=== PATIENT | female | born 1985 | race Two or more races ===

== ENCOUNTER 2020-04-10 17:20 | Outpatient (CLI) | payer OTHER | END 2020-04-10 23:59 | disposition home or self-care (01) | LOC: LAB.N 17:20 | PROVIDERS: ATTEND Nurse Practitioner | DX: R10.9 Unspecified abdominal pain (principal) | CPT/HCPCS: 87077; 87086 ==

== ENCOUNTER 2020-05-11 09:19 | Day surgery (SDC) | payer OTHER ==
[2020-05-11 09:51] LABS: HCG UR QUAL NEGATIVE
[2020-05-11] MEDS ORDERED: LACTATED RINGERS 1,000 ML IV ONE ×2 (10:01→11:41)
[2020-05-11 10:42] LABS: B. PARAPERTUSSIS- RESP PCR PAN NOT DETECTED; B. PERTUSSIS- RESP PCR PANEL NOT DETECTED; C. PNEUMONIAE- RESP PCR PANEL NOT DETECTED; CORONAVIRUS 229E-RESP PCR NOT DETECTED; CORONAVIRUS HKU1-RESP PCR NOT DETECTED; CORONAVIRUS NL63-RESP PCR NOT DETECTED; CORONAVIRUS OC43-RESP PCR NOT DETECTED; HUMAN METAPNEUMOVIRUS NOT DETECTED; INFLUENZA A- RESP PCR PANEL NOT DETECTED; INFLUENZA B - RESP PCR PANEL NOT DETECTED; M. PNEUMONIAE- RESP PCR PANEL NOT DETECTED; PARAINFLUENZA VIRUS 1 NOT DETECTED; PARAINFLUENZA VIRUS 2 NOT DETECTED; PARAINFLUENZA VIRUS 3 NOT DETECTED; PARAINFLUENZA VIRUS 4 NOT DETECTED; RHINOVIRUS/ENTEROVIRUS NOT DETECTED; RSV- RESP PCR PANEL NOT DETECTED; SARS-CoV-2 -RESP PCR PANEL NOT DETECTED
[2020-05-11] MEDS ORDERED: BENZOCAINE/TETRACAINE/BUTAMBEN 20 GM ONE (11:02)
[2020-05-11] MEDS ORDERED: MIDAZOLAM 2 MG/2 ML VIAL ONE ×5 (11:02→11:44)
[2020-05-11] MEDS ORDERED: BENZOCAINE/TETRACAINE/BUTAMBEN 20 GM TOP ONE (11:03)
[2020-05-11] MEDS ORDERED: fentaNYL 250 MCG/5 ML VIAL ONE (11:03)
[2020-05-11 12:17] VITALS: BP 98/63
== END 2020-05-11 09:20 | disposition home or self-care (01) ==
LOC: SDS 09:19
PROVIDERS: ATTEND Surgery
PROC: 0DB68ZX Excision of Stomach, Via Natural or Artificial Opening Endoscopic, Diagnostic (ICD-10-PCS; 2020-05-11)
PROC: 0DB48ZX Excision of Esophagogastric Junction, Via Natural or Artificial Opening Endoscopic, Diagnostic (ICD-10-PCS; 2020-05-11)
PROC: 0DB38ZX Excision of Lower Esophagus, Via Natural or Artificial Opening Endoscopic, Diagnostic (ICD-10-PCS; 2020-05-11)
PROC: 0DJD8ZZ Inspection of Lower Intestinal Tract, Via Natural or Artificial Opening Endoscopic (ICD-10-PCS; principal; 2020-05-11 11:00)
PROC: 0DB98ZX Excision of Duodenum, Via Natural or Artificial Opening Endoscopic, Diagnostic (ICD-10-PCS; 2020-05-11 11:00)
DX: K62.5 Hemorrhage of anus and rectum (principal); R11.0 Nausea; K21.9 Gastro-esophageal reflux disease without esophagitis; K57.30 Diverticulosis of large intestine without perforation or abscess without bleeding; K64.8 Other hemorrhoids; Z86.010 Personal history of colon polyps; Z20.822 Contact with and (suspected) exposure to COVID-19
CPT/HCPCS: 0202U; 43239; 45378; 81025; A9270; J3010; J7120

== ENCOUNTER 2020-05-19 15:13 | Outpatient (CLI) | payer OTHER ==
--- NOTE | 2020-05-19 16:36 | Ultrasound Report ---
PROCEDURE: Pelvic w/Transvaginal INDICATIONS: RT OVARIAN CYST TECHNIQUE: Real-time scanning was performed of the pelvic organs, with image documentation. Additional endovagi nal scanning was necessary due to incomplete visualization of the adnexal and endometrial structures by transabdominal scanning. COMPARISON: No prior studies are currently of L4 comparison. FINDINGS: No pathologic free abdominal or pelvic fluid. Uterus: Uterus is normal in size at 8 x 4.2 cm, for spine 2 51 cc volume. The endometrium measures 2 mm in combined thickness. Ovaries: Right ovary measures 3.7 x 2.0 x 2.7 cm, volume 10.5 cc. Less than 12 follicles are noted. Left ovary measures 3.4 x 2.8 x 1.6 cm, volume 8.1 cc. IMPRESSION: Unremarkable exam. No suspicious right and Reviewed by: Laverne Samson MD on 05/19/2020 4:35 PM PDT Approved by: Laverne Samson MD on 05/19/2020 4:35 PM PDT Station ID: [id number]
== END 2020-05-19 15:14 | disposition home or self-care (01) ==
LOC: DI 15:13
PROVIDERS: ATTEND Physician Assistant
DX: N83.201 Unspecified ovarian cyst, right side (principal); R10.9 Unspecified abdominal pain

== ENCOUNTER 2020-08-06 15:11 | Emergency (ER) | payer OTHER ==
[2020-08-06] MEDS ORDERED: IPRATROPIUM/ALBUTEROL 3 ML NEB INH STA (15:33)
--- NOTE | 2020-08-06 15:34 | ED Physician Documentation ---
PD HPI DYSPNEA - Stated complaint Stated Complaint: SOA,LEFT ARM TINGLE - Chief complaint Chief Complaint: Resp - History obtained from History obtained from: Patient - Additional information Additional information: 35-year-old woman with history of asthma. She has been hospitalized for asthma but it has been a long time. Currently only taking albuterol. Used to be on Symbicort but it was giving her headaches. Today a little over an hour and a half ago she became short of breath and wheezy without relief from her albuterol inhaler. Then she became more short of breath and worked herself up with left arm tingling. Now feeling mostly better but still little short of breath. She denies pedal edema, calf pain, she is not on control pills. No history of DVT or PE. No other health issues. 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 : Kidney stones, None HEENT: None Psych: None Musculoskeletal: None Derm: None - Past Surgical History Past Surgical History: Yes General: Colonoscopy /INSTITUTIONAL ASSET MANAGER: section, Other HEENT: Tonsil/Adenoidectomy - Present Medications Home Medications: Ambulatory Orders Medication Instructions Recorded Confirmed Docusate Sodium Oral Soln [Colace] 100 mg PO BID #30 udc 04/01/13 12/13/13 polyethylene glycoL 3350 [Miralax] 17 gm PO DAILY PRN 04/01/13 12/13/13 Albuterol Sulfate [Proair Hfa] 2 gm IH PRN 12/13/13 12/13/13 Esomeprazole Magnesium [Nexium] 40 mg ORAL DAILY 12/13/13 12/13/13 Fluticasone/Salmeterol [Advair 2 tab ORAL BID 12/14/13 12/14/13 250-50 Diskus] Albuterol Sulf [Ventolin Hfa 1 - 2 puffs INH Q4HR PRN 05/10/20 05/10/20 Inhaler] predniSONE [Deltasone] 60 mg PO DAILY 5 Days #15 tablet 08/06/20 - Allergies Allergies/Adverse Reactions: Allergies Allergy/AdvReac Type Severity Reaction Status Date / Time Latex, Natural Rubber Allergy Hives Verified 08/06/20 15:18 - Social History Does the pt smoke?: No Smoking Status: Never smoker Does the pt drink ETOH?: Yes Does the pt have substance abuse?: No - Immunizations Immunizations are current?: Yes - POLST Patient has POLST: No PD ED PE NORMAL - Vitals Vital signs reviewed: Yes - General General: Alert and oriented X 3, Other (She is tearful but in no respiratory distress.) - Cardiac Cardiac: RRR, No murmur - Respiratory Respiratory: No respiratory distress, Other (Mildly diminished lungs throughout with slight expiratory wheezes but generally good air motion. Nonlabored.) - Abdomen Abdomen: Non tender - Extremities Extremities: No edema, No calf tenderness / cord - Neuro Neuro: Alert and oriented X 3, Normal speech Results - Vitals Vitals: Vital Signs - 24 hr 08/06/20 15:16 Temperature 36.4 C L Heart Rate 90 Respiratory 16 Rate Blood Pressure 152/90 H O2 Saturation 100 Oxygen O2 Source Room air - EKG (time done) 1524 Rate: Rate (enter#) (88) Rhythm: NSR [place]: Normal Intervals: Normal [place] QRS: Normal Ischemia: Normal ST segments PD MEDICAL DECISION MAKING - ED course ED course: 35-year-old woman with history of asthma presents after an asthma exacerbation with potentially some anxiety overlay. After a DuoNeb here she felt completely back to normal. Departure - Departure Disposition: 01 Home, Self Care Clinical Impression: Asthma Qualifiers: Asthma severity: moderate Asthma persistence: persistent Asthma complication type: with acute exacerbation Qualified Code(s): J45.41 - Moderate persistent asthma with (acute) exacerbation Condition: Good Record reviewed to determine appropriate education?: Yes Instructions: Asthma Dc Prescriptions: predniSONE [Deltasone] 60 mg PO DAILY 5 Days #15 tablet Comments: Follow-up with your primary care physician. Return for new or worsening symptoms.
[2020-08-06] MEDS ORDERED: predniSONE 20 MG TABLET PO STA (16:17)
[2020-08-06 16:25] VITALS: BP 131/72
== END 2020-08-06 16:38 | disposition home or self-care (01) ==
LOC: ED 15:11
DX: J45.41 Moderate persistent asthma with (acute) exacerbation (principal)
CPT/HCPCS: 93005; 94640; 99283; 99284; J7512

== ENCOUNTER 2021-01-14 12:20 | Outpatient (CLI) | payer OTHER ==
--- NOTE | 2021-01-14 14:06 | XRAY Report ---
PROCEDURE: Foot 3 View LT, x-ray INDICATIONS: CONTUSION OF LEFT FOOT TECHNIQUE: 3 views of the foot were acquired. COMPARISON: None FINDINGS: Bones: No fractures or dislocations. No suspicious bony lesions. Soft tissues: No tibiotalar joint effusion. Achilles tendon appears normal. IMPRESSION: Normal left foot radiographs Reviewed by: Jeremie Flores MD on 01/14/2021 1:04 PM [facility] Approved by: Jeremie Flores MD on 01/14/2021 1:04 PM [facility] Station ID: [id number]
== END 2021-01-14 23:59 | disposition home or self-care (01) ==
LOC: DI.N 12:20
PROVIDERS: ATTEND Physician Assistant Medical
DX: S90.32XA Contusion of left foot, initial encounter (principal)

== ENCOUNTER 2021-01-24 21:32 | Emergency (ER) | payer OTHER ==
--- NOTE | 2021-01-24 21:44 | ED Physician Documentation ---
PD HPI FEMALE - Stated complaint Stated Complaint: FEMALE - Chief complaint Chief Complaint: UTI - History obtained from History obtained from: Patient - History of Present Illness Timing - onset: How many days ago (2) Timing - duration: Days (2) Timing - details: Abrupt onset, Still present Associated symptoms: Abdominal pain (crampy low abd and some flank pains both sides.), Back pain, Dysuria, Urinary frequency. No: Fever, Vaginal discharge, Genital sore/lesion, Hematuria Contributing factors: No: Exposed to STD Similar symptoms before: Has not had sx before Recently seen: Not recently seen (but did home test for UTI that was positive f or leuks and nitrites.) Review of Systems Constitutional: denies: Fever, Chills Nose: denies: Rhinorrhea / runny nose, Congestion Throat: denies: Sore throat Respiratory: denies: Cough : reports: Dysuria, Frequency Skin: denies: Rash, Lesions PD PAST MEDICAL HISTORY - Past Medical History Cardiovascular: None, Murmur Respiratory: Asthma Endocrine/Autoimmune: None GI: Chronic constipation, None 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: Endometriosis : Kidney stones, None HEENT: None Psych: None Musculoskeletal: None Derm: None - Past Surgical History Past Surgical History: Yes General: Colonoscopy /KEY SANDER: section, Other HEENT: Tonsil/Adenoidectomy - Present Medications Home Medications: Ambulatory Orders Medication Instructions Recorded Confirmed Docusate Sodium Oral Soln [Colace] 100 mg PO BID #30 udc 04/01/13 12/13/13 polyethylene glycoL 3350 [Miralax] 17 gm PO DAILY PRN 04/01/13 12/13/13 Albuterol Sulfate [Proair Hfa] 2 gm IH PRN 12/13/13 12/13/13 Esomeprazole Magnesium [Nexium] 40 mg ORAL DAILY 12/13/13 12/13/13 Fluticasone/Salmeterol [Advair 2 tab ORAL BID 12/14/13 12/14/13 250-50 Diskus] Albuterol Sulf [Ventolin Hfa 1 - 2 puffs INH Q4HR PRN 05/10/20 05/10/20 Inhaler] predniSONE [Deltasone] 60 mg PO DAILY 5 Days #15 tablet 08/06/20 Ondansetron Odt [Zofran] 4 mg TL Q6H PRN #10 tablet 01/24/21 Phenazopyridine HCl [Pyridium] 100 mg PO TID PRN #15 tablet 01/24/21 cephALEXin [Keflex] 500 mg PO TID 6 Days #18 cap 01/24/21 - Allergies Allergies/Adverse Reactions: Allergies Allergy/AdvReac Type Severity Reaction Status Date / Time Latex, Natural Rubber Allergy Hives Verified 01/24/21 21:41 - Social History Does the pt smoke?: No Smoking Status: Never smoker Does the pt drink ETOH?: Yes Does the pt have substance abuse?: No - Immunizations Immunizations are current?: Yes - POLST Patient has POLST: No PD ED PE NORMAL - Vitals Vital signs reviewed: Yes - General General: Alert and oriented X 3, Well developed/nourished - Female Female : Deferred - Back Back: Other (mild tenderness left flank to percussion. ) - Derm Derm: Normal color, Warm and dry - Neuro Neuro: Alert and oriented X 3, No motor deficit, Normal speech Results - Vitals Vitals: Vital Signs - 24 hr 01/24/21 01/24/21 21:37 22:37 Temperature 36.6 C Heart Rate 91 74 Respiratory 16 18 Rate Blood Pressure 144/81 H 107/71 O2 Saturation 100 98 Oxygen O2 Source Room air - Labs Labs: Laboratory Tests 01/24/21 21:44 Urine Color ORANGE Urine Clarity CLEAR Urine pH 5.5 Ur Specific [place] <=1.005 Urine Protein Urine Glucose (UA) 100 H Urine Ketones NEGATIVE Urine Occult Blood NEGATIVE Urine Nitrite Urine Bilirubin NEGATIVE Urine Urobilinogen Ur Leukocyte Esterase NEGATIVE Urine RBC 0-5 Urine WBC 0-3 Ur Squamous Epith Cells RARE Squamous Urine Bacteria Rare Ur Microscopic Review INDICATED Urine Culture Comments Not Reportable Urine HCG, Qual NEGATIVE PD MEDICAL DECISION MAKING - ED course Complexity details: reviewed results (UA is complicated by pyridium, but she had done home UTI test prior to taking that. That along with her symptoms are c/w UTI. ), considered differential, d/w patient Departure - Departure Disposition: 01 Home, Self Care Clinical Impression: Dysuria Urinary tract infection Qualifiers: Urinary tract infection type: acute pyelonephritis Qualified Code(s): N10 - Acute pyelonephritis Condition: Stable Instructions: ED UTI Cystitis Female Follow-Up: SHAWNA DEE PA-C [Primary Care Provider] - Prescriptions: cephALEXin [Keflex] 500 mg PO TID 6 Days #18 cap Phenazopyridine HCl [Pyridium] 100 mg PO TID PRN #15 tablet PRN Reason: Abdominal Pain Ondansetron Odt [Zofran] 4 mg TL Q6H PRN #10 tablet PRN Reason: Nausea / Vomiting Comments: Hydrated. Continue the phenazopyridine/Azo as needed for urinary discomfort. He can also use Tylenol or ibuprofen. Your urine sample does look consistent with infection and correlates with your symptoms. Cephalexin 3 times a day for the next week for the infection. You can use ondansetron if needed for nausea. Recheck if not improving well over the next 2 to 3 days and return if worsening. I transmitted the prescriptions to [facility] pharmacy in [place]. Discharge Date/Time: 01/24/21 22:39
[2021-01-24 22:01] LABS: BILIRUBIN,URINE NEGATIVE (NEGATIVE); GLUCOSE, URINE (UA) 100 mg/dL (NEGATIVE); KETONES,URINE (UA) NEGATIVE (NEGATIVE); LEUKOCYTE ESTERASE, URINE NEGATIVE (NEGATIVE); OCCULT BLOOD,URINE NEGATIVE (NEGATIVE); PH,URINE 5.5 PH (5.0-7.5)
[2021-01-24] MEDS ORDERED: ONDANSETRON ODT 4 MG TABLET TL STA (22:04)
[2021-01-24 22:05] LABS: CLARITY,URINE CLEAR (CLEAR); HCG UR QUAL NEGATIVE
[2021-01-24] MEDS ORDERED: PHENAZOPYRIDINE 100 MG TABLET PO STA (22:05)
[2021-01-24] MEDS ORDERED: CEPHALEXIN 250 MG Prepack 8 CAP BOTTLE PO STA (22:05)
[2021-01-24] MEDS ORDERED: cephALEXin 250 MG CAPSULE PO STA (22:05)
[2021-01-24] MEDS ORDERED: ONDANSETRON ODT 4 MG Prepack 2 TL PRN (22:05)
[2021-01-24 22:13] LABS: BACTERIA,URINE Rare /HPF (None Seen); RBC,URINE 0-5 /HPF (0-5); SQUAMOUS EPITHELIAL CELL,UR RARE Squamous (<= Few); WBC,URINE 0-3 /HPF (0-5)
[2021-01-24 22:38] VITALS: BP 107/71
== END 2021-01-24 22:39 | disposition home or self-care (01) ==
LOC: ED 21:32
DX: N10 Acute pyelonephritis (principal)
CPT/HCPCS: 81001; 81025; 99283; A9270; Q0162; 81003; 87086

== ENCOUNTER 2021-03-05 08:00 | Outpatient (CLI) | payer OTHER | END 2021-03-05 23:59 | LOC: LAB 08:00 | PROVIDERS: ATTEND Family Medicine | DX: R05.9 Cough, unspecified (principal); R11.2 Nausea with vomiting, unspecified; K30 Functional dyspepsia; Z20.822 Contact with and (suspected) exposure to COVID-19 | CPT/HCPCS: 87275; 87276 ==

== ENCOUNTER 2021-11-28 08:00 | Outpatient (CLI) | payer OTHER | END 2021-11-28 23:59 | disposition home or self-care (01) | LOC: LAB.N 08:00 | PROVIDERS: ATTEND Family Medicine | DX: N39.0 Urinary tract infection, site not specified (principal) | CPT/HCPCS: 87086 ==

== ENCOUNTER 2021-11-28 12:34 | Outpatient (CLI) | payer OTHER | END 2021-11-28 23:59 | disposition home or self-care (01) | LOC: LAB 12:34 | PROVIDERS: ATTEND Family Medicine | DX: Z53.9 Procedure and treatment not carried out, unspecified reason (principal) ==

== ENCOUNTER 2021-12-05 09:55 | Emergency (ER) | payer OTHER ==
[2021-12-05 10:52] LABS: BASOPHILS % (AUTO) 0.3 %; EOSINOPHILS % (AUTO) 0.5 %; HCT - HEMATOCRIT 39.5 % (37.0-47.0); HGB - HEMOGLOBIN 13.2 g/dL (12.0-16.0); LYMPHOCYTES % (AUTO) 17.3 %; MEAN CORPUSCULAR HEMOGLOBIN 30.3 pg (27.0-31.0); MEAN CORPUSCULAR HGB CONC 33.4 g/dL (32.0-36.0); MEAN CORPUSCULAR VOLUME 90.6 fL (81.0-99.0); MONOCYTES # (AUTO) 0.3 10^3/uL (0.0-1.0); MONOCYTES % (AUTO) 5.1 %; NEUTROPHILS # (AUTO) 4.6 10^3/uL (1.5-6.6); NEUTROPHILS % (AUTO) 76.6 %; PLT - PLATELET COUNT 216 10^3/uL (130-450); RED BLOOD COUNT 4.36 10^6/uL (4.20-5.40); RED CELL DISTRIBUTION WIDTH 13.1 % (12.0-15.0); WHITE BLOOD COUNT 5.9 x10^3/uL (4.8-10.8)
[2021-12-05 11:06] LABS: ALBUMIN 4.5 g/dL (3.2-5.5); ALBUMIN/GLOBULIN RATIO 1.5 (1.0-2.2); BILIRUBIN,TOTAL 1.4 mg/dL (0.2-1.0); CALCIUM 9.6 mg/dL (8.5-10.3); CREATININE 0.6 mg/dL (0.4-1.0); TOTAL PROTEIN 7.5 g/dL (6.7-8.2)
--- NOTE | 2021-12-05 11:18 | ED Physician Documentation ---
History of Present Illness - Stated complaint Stated Complaint: FAINTING SPELL - Chief complaint Chief Complaint: Neuro - Additonal information Additional information: Patient is 36-year-old female presenting with chief complaint of syncope. Reports becoming acutely dizzy while combing her hair this morning. Syncopized and woke up a few minutes later. Denies any head trauma. Denies any prolonged confusion or history of seizure disorder. States has had 1 similar episode approximately 2 years ago. Denies any chest pain or palpitations associated with her symptoms. 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 : Kidney stones, None HEENT: None Psych: None Musculoskeletal: None Derm: None - Past Surgical History Past Surgical History: Yes General: Colonoscopy /V BELT INSPECTOR: section, Other HEENT: Tonsil/Adenoidectomy - Present Medications Home Medications: Ambulatory Orders Medication Instructions Recorded Confirmed Docusate Sodium Oral Soln [Colace] 100 mg PO BID #30 udc 04/01/13 12/13/13 polyethylene glycoL 3350 [Miralax] 17 gm PO DAILY PRN 04/01/13 12/13/13 Albuterol Sulfate [Proair Hfa] 2 gm IH PRN 12/13/13 12/13/13 Esomeprazole Magnesium [Nexium] 40 mg ORAL DAILY 12/13/13 12/13/13 Fluticasone/Salmeterol [Advair 2 tab ORAL BID 12/14/13 12/14/13 250-50 Diskus] Albuterol Sulf [Ventolin Hfa 1 - 2 puffs INH Q4HR PRN 05/10/20 05/10/20 Inhaler] predniSONE [Deltasone] 60 mg PO DAILY 5 Days #15 tablet 08/06/20 Ondansetron Odt [Zofran] 4 mg TL Q6H PRN #10 tablet 01/24/21 Phenazopyridine HCl [Pyridium] 100 mg PO TID PRN #15 tablet 01/24/21 cephALEXin [Keflex] 500 mg PO TID 6 Days #18 cap 01/24/21 - Allergies Allergies/Adverse Reactions: Allergies Allergy/AdvReac Type Severity Reaction Status Date / Time Latex, Natural Rubber Allergy Hives Verified 12/05/21 10:10 - Social History Does the pt smoke?: No Smoking Status: Never smoker Does the pt drink ETOH?: Yes Does the pt have substance abuse?: No - Immunizations Immunizations are current?: Yes - POLST Patient has POLST: No PD ED PE NORMAL - Vitals Vital signs reviewed: Yes - General General: Alert and oriented X 3, No acute distress, Well developed/nourished - HEENT HEENT: Atraumatic, PERRL - Neck Neck: Supple, no meningeal sign - Cardiac Cardiac: RRR, No gallop, Strong equal pulses - Respiratory Respiratory: No respiratory distress, Clear bilaterally - Female Female : Deferred - Rectal Rectal: Deferred - Neuro Neuro: Alert and oriented X 3, lock master 2-12 intact, No motor deficit, Normal speech Results - Vitals Vitals: Vital Signs - 24 hr 12/05/21 12/05/21 12/05/21 10:04 11:34 11:41 Temperature 37.1 C Heart Rate 92 80 Heart Rate [ 78 Sitting] Heart Rate [ 83 Standing] Heart Rate [ 74 Supine] Respiratory 16 15 Rate Blood Pressure 130/91 H Blood Pressure 119/87 H [Sitting] Blood Pressure 117/84 H [Standing] Blood Pressure 109/75 [Supine] O2 Saturation 98 100 Oxygen O2 Source Room air - EKG (time done) 1014 Rate: Rate (enter#) (93) Rhythm: NSR [place]: Normal Intervals: Normal CT QRS: Normal Ischemia: Normal ST segments Computer interpretation: Agree with computer - Labs Labs: Laboratory Tests 12/05/21 12/05/21 12/05/21 10:13 10:49 10:49 WBC 5.9 RBC 4.36 Hgb 13.2 Hct 39.5 MCV 90.6 MCH 30.3 MCHC 33.4 RDW 13.1 Plt Count 216 MPV 10.0 Neut # (Auto) 4.6 Lymph # (Auto) 1.0 L [place] # (Auto) 0.3 Eos # (Auto) 0.0 Baso # (Auto) 0.0 Absolute Nucleated RBC 0.00 Nucleated RBC % 0.0 Sodium 136 Potassium 4.0 Chloride 103 Carbon Dioxide 27 Anion Gap 6.0 BUN 15 Creatinine 0.6 Estimated GFR (MDRD) 114 Glucose 101 H POC Whole Bld Glucose 98 Calcium 9.6 Total Bilirubin 1.4 H AST 23 ALT 19 Alkaline Phosphatase 46 Troponin I High Sens Total Protein 7.5 Albumin 4.5 Globulin 3.0 Albumin/Globulin Ratio 1.5 Lipase 44 Urine HCG, Qual 12/05/21 12/05/21 10:49 11:32 WBC RBC Hgb Hct MCV MCH MCHC RDW Plt Count MPV Neut # (Auto) Lymph # (Auto) [place] # (Auto) Eos # (Auto) Baso # (Auto) Absolute Nucleated RBC Nucleated RBC % Sodium Potassium Chloride Carbon Dioxide Anion Gap BUN Creatinine Estimated GFR (MDRD) Glucose POC Whole Bld Glucose Calcium Total Bilirubin AST ALT Alkaline Phosphatase Troponin I High Sens < 2.3 L Total Protein Albumin Globulin Albumin/Globulin Ratio Lipase Urine HCG, Qual NEGATIVE PD MEDICAL DECISION MAKING - ED course Complexity details: reviewed results, re-evaluated patient, d/w patient ED course: Patient is 36-year-old female presenting to the emergency department after syncopal episode. Afebrile, hemodynamically stable on arrival to the emergency department. EKG nonacute. Lab work obtained within normal limits are generally nonactionable. Patient is low risk per [place] syncope scoring. Will discharge for follow-up with primary care. Clear return precautions given. Departure - Departure Disposition: 01 Home, Self Care Clinical Impression: Syncope Instructions: ED Fainting Unkn Cause Comments: Thank you for allowing us to care for you today at [facility]. Today in the emergency department your evaluated for any possible life- threatening medical emergency. All the testing performed in the emergency department including your blood work and EKG were all very reassuring. I would like you to make a follow-up appointment with your primary care doctor soon as you are able. If it anytime you have any new or worsening symptoms or if you have recurrent episode of syncope please return to the emergency department for reevaluation.
[2021-12-05 11:42] LABS: HCG UR QUAL NEGATIVE
[2021-12-05 12:45] VITALS: BP 112/78
== END 2021-12-05 12:51 | disposition home or self-care (01) ==
LOC: ED 09:55
DX: R55 Syncope and collapse (principal)
CPT/HCPCS: 36415; 80053; 81025; 83690; 84484; 85025; 93005; 99282; 99284

== ENCOUNTER 2021-12-30 09:10 | Emergency (ER) | payer OTHER ==
[2021-12-30 09:30] VITALS: BP 135/83
[2021-12-30 09:40] LABS: BILIRUBIN,URINE NEGATIVE (NEGATIVE); GLUCOSE, URINE (UA) NEGATIVE (NEGATIVE); KETONES,URINE (UA) NEGATIVE (NEGATIVE); LEUKOCYTE ESTERASE, URINE MODERATE (NEGATIVE); NITRITE,URINE NEGATIVE (NEGATIVE); OCCULT BLOOD,URINE LARGE (NEGATIVE); PROTEIN,URINE TRACE mg/dL (NEGATIVE); UROBILINOGEN,URINE 0.2 (NORMAL) E.U./dL (NORMAL)
[2021-12-30 09:44] LABS: CLARITY,URINE CLOUDY (CLEAR); HCG UR QUAL NEGATIVE
[2021-12-30 09:47] LABS: WBC CLUMPS,URINE PRESENT; WBC,URINE >25 /HPF (0-5)
--- NOTE | 2021-12-30 09:47 | ED Physician Documentation ---
PD HPI FEMALE - Stated complaint Stated Complaint: FEMALE - Chief complaint Chief Complaint: UTI - History obtained from History obtained from: Patient - History of Present Illness Timing - onset: Yesterday Timing - duration: Days (1) Timing - details: Abrupt onset, Still present Associated symptoms: Dysuria, Urinary frequency, Hematuria. 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 No: Exposed to STD Similar symptoms before: Diagnosis (UTI) Review of Systems Constitutional: denies: Fever, Chills GI: reports: Nausea. denies: Abdominal Pain, Vomiting, Diarrhea : reports: Dysuria, Frequency. 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 : Kidney stones, None HEENT: None Psych: None Musculoskeletal: None Derm: None - Past Surgical History Past Surgical History: Yes General: Colonoscopy /FIELD ADVISOR: section, Other HEENT: Tonsil/Adenoidectomy - Present Medications Home Medications: Ambulatory Orders Medication Instructions Recorded Confirmed Docusate Sodium Oral Soln [Colace] 100 mg PO BID #30 udc 04/01/13 12/13/13 polyethylene glycoL 3350 [Miralax] 17 gm PO DAILY PRN 04/01/13 12/13/13 Albuterol Sulfate [Proair Hfa] 2 gm IH PRN 12/13/13 12/13/13 Esomeprazole Magnesium [Nexium] 40 mg ORAL DAILY 12/13/13 12/13/13 Fluticasone/Salmeterol [Advair 2 tab ORAL BID 12/14/13 12/14/13 250-50 Diskus] Albuterol Sulf [Ventolin Hfa 1 - 2 puffs INH Q4HR PRN 05/10/20 05/10/20 Inhaler] predniSONE [Deltasone] 60 mg PO DAILY 5 Days #15 tablet 08/06/20 Ondansetron Odt [Zofran] 4 mg TL Q6H PRN #10 tablet 01/24/21 Phenazopyridine HCl [Pyridium] 100 mg PO TID PRN #15 tablet 01/24/21 cephALEXin [Keflex] 500 mg PO TID 6 Days #18 cap 01/24/21 Fluconazole [Diflucan] 150 mg PO ONCE #1 tablet 12/30/21 Ondansetron Odt [Zofran] 4 mg TL Q6H PRN #10 tablet 12/30/21 Sulfamethox/Trimeth 800/160 1 each PO BID #14 tablet 12/30/21 [Bactrim Ds 800/160] - Allergies Allergies/Adverse Reactions: Allergies Allergy/AdvReac Type Severity Reaction Status Date / Time Latex, Natural Rubber Allergy Hives Verified 12/30/21 09:28 - Social History Does the pt smoke?: No Smoking Status: Never smoker Does the pt drink ETOH?: Yes Does the pt have substance abuse?: No - Immunizations Immunizations are current?: Yes - POLST Patient has POLST: No PD ED PE NORMAL - Vitals Vital signs reviewed: Yes - General General: Alert and oriented X 3, No acute distress, Well developed/nourished - Abdomen Abdomen: Soft, Non tender - Female Female : Deferred - Back Back: No CVA TTP - Derm Derm: Normal color, Warm and dry Results - Vitals Vitals: Vital Signs - 24 hr 12/30/21 09:28 Temperature 36.7 C Heart Rate 98 Respiratory 17 Rate Blood Pressure 135/83 H O2 Saturation 100 Oxygen O2 Source Room air - Labs Labs: Laboratory Tests 12/30/21 09:33 Urine Color DARK YELLOW Urine Clarity CLOUDY Urine pH 6.0 Ur Specific [place] 1.010 Urine Protein TRACE Urine Glucose (UA) NEGATIVE Urine Ketones NEGATIVE Urine Occult Blood LARGE H Urine Nitrite NEGATIVE Urine Bilirubin NEGATIVE Urine Urobilinogen 0.2 (NORMAL) Ur Leukocyte Esterase MODERATE H Urine RBC TNTC H Urine WBC >25 H Urine WBC Clumps PRESENT Ur Squamous Epith Cells FEW Squamous Urine Bacteria Few Ur Microscopic Review INDICATED Urine Culture Comments INDICATED Urine HCG, Qual NEGATIVE PD MEDICAL DECISION MAKING - ED course Complexity details: reviewed results, considered differential, d/w patient Departure - Departure Disposition: 01 Home, Self Care Clinical Impression: Bilateral lower abdominal cramping Urinary tract infection Qualifiers: Urinary tract infection type: acute cystitis Hematuria presence: with hematuria Qualified Code(s): N30.01 - Acute cystitis with hematuria Condition: Stable Record reviewed to determine appropriate education?: Yes Instructions: ED UTI Cystitis Female Follow-Up: SHAWNA DEE PA-C [Primary Care Provider] - Prescriptions: Sulfamethox/Trimeth 800/160 [Bactrim Ds 800/160] 1 each PO BID #14 tablet Fluconazole [Diflucan] 150 mg PO ONCE #1 tablet Ondansetron Odt [Zofran] 4 mg TL Q6H PRN #10 tablet PRN Reason: Nausea / Vomiting Comments: Your urine does look like there is infection in the urinary tract. Your symptoms would go along with that. Its not uncommon to get some blood in the urine with the bladder infection. Stay well-hydrated. Ondansetron if needed for nausea. Use Tylenol every 4-6 hours if needed for pains or cramps. You could add in some ibuprofen if needed as well. Bactrim DS antibiotic twice daily for the next 5 to 7 days until fully cleared. Diflucan in the end of the antibiotic course to reduce chance of yeast infection. I sent your prescriptions to [facility] pharmacy in [place]. Discharge Date/Time: 12/30/21 11:06
[2021-12-30 09:48] LABS: BACTERIA,URINE Few /HPF (None Seen); RBC,URINE TNTC /HPF (0-5); SQUAMOUS EPITHELIAL CELL,UR FEW Squamous (<= Few)
[2021-12-30] MEDS ORDERED: ONDANSETRON ODT 4 MG TABLET TL STA (10:10)
[2021-12-30] MEDS ORDERED: SULFAMETH/TRIMETH DS 800/160 MG TABLET PO STA (10:10)
[2021-12-30] MEDS ORDERED: ACETAMINOPHEN 325 MG TABLET PO STA (10:10)
== END 2021-12-30 11:06 | disposition home or self-care (01) ==
LOC: ED 09:10
DX: N30.01 Acute cystitis with hematuria (principal)
CPT/HCPCS: 81001; 81025; 87086; 99283; A9270; Q0162; 81003

== ENCOUNTER 2022-06-11 11:39 | Emergency (ER) | payer OTHER ==
[2022-06-11 12:00] LABS: BILIRUBIN,URINE NEGATIVE (NEGATIVE); GLUCOSE, URINE (UA) NEGATIVE (NEGATIVE); KETONES,URINE (UA) NEGATIVE (NEGATIVE); LEUKOCYTE ESTERASE, URINE NEGATIVE (NEGATIVE); NITRITE,URINE NEGATIVE (NEGATIVE); OCCULT BLOOD,URINE TRACE-INTA (NEGATIVE); PH,URINE 6.5 PH (5.0-7.5); PROTEIN,URINE NEGATIVE (NEGATIVE); UROBILINOGEN,URINE 0.2 (NORMAL) E.U./dL (NORMAL)
[2022-06-11 12:04] LABS: CLARITY,URINE CLEAR (CLEAR); HCG UR QUAL NEGATIVE
[2022-06-11 12:05] LABS: BASOPHILS % (AUTO) 0.7 %; EOSINOPHILS # (AUTO) 0.1 10^3/uL (0.0-0.7); EOSINOPHILS % (AUTO) 2.1 %; HCT - HEMATOCRIT 39.9 % (37.0-47.0); HGB - HEMOGLOBIN 13.4 g/dL (12.0-16.0); LYMPHOCYTES # (AUTO) 1.7 10^3/uL (1.5-3.5); LYMPHOCYTES % (AUTO) 29.5 %; MEAN CORPUSCULAR HEMOGLOBIN 30.5 pg (27.0-31.0); MEAN CORPUSCULAR HGB CONC 33.6 g/dL (32.0-36.0); MEAN CORPUSCULAR VOLUME 90.7 fL (81.0-99.0); MONOCYTES # (AUTO) 0.3 10^3/uL (0.0-1.0); MONOCYTES % (AUTO) 6.1 %; NEUTROPHILS # (AUTO) 3.4 10^3/uL (1.5-6.6); NEUTROPHILS % (AUTO) 61.4 %; PLT - PLATELET COUNT 246 10^3/uL (130-450); RED CELL DISTRIBUTION WIDTH 12.9 % (12.0-15.0); WHITE BLOOD COUNT 5.6 x10^3/uL (4.8-10.8)
[2022-06-11 12:13] LABS: ALBUMIN 4.9 g/dL (3.2-5.5); ALBUMIN/GLOBULIN RATIO 1.7 (1.0-2.2); BILIRUBIN,TOTAL 1.5 mg/dL (0.2-1.0); CALCIUM 9.4 mg/dL (8.5-10.3); CREATININE 0.6 mg/dL (0.4-1.0); POTASSIUM 3.8 mmol/L (3.5-5.0); TOTAL PROTEIN 7.8 g/dL (6.7-8.2)
[2022-06-11] MEDS ORDERED: SODIUM CHLORIDE 0.9% 1,000 ML IV STA (14:00)
[2022-06-11] MEDS ORDERED: KETOROLAC 15 MG/ML VIAL IVP STA (14:00)
[2022-06-11] MEDS ORDERED: ONDANSETRON 4 MG/2 ML VIAL IVP STA (14:00)
[2022-06-11] MEDS ORDERED: iohexoL-300 100 ML VIAL ONE (14:13)
--- NOTE | 2022-06-11 15:05 | CT Report ---
PROCEDURE: ABDOMEN/PELVIS W INDICATIONS: mid abd cramping pain CONTRAST: 100ml Omnipaque 300 TECHNIQUE: After the administration of IV contrast, 5 mm thick sections acquired from the diaphragms to the symp hysis. 5 mm thick coronal and sagittal reformats were acquired. For radiation dose reduction, the f ollowing was used: automated exposure control, adjustment of mA and/or kV according to patient size. COMPARISON: None FINDINGS: Image quality: Good Lower chest: Unremarkable lung bases. Solid organs: Suspected focal fat around the falciform ligament. Liver is otherwise unremarkable. Gal lbladder is unremarkable. No pathologic dilation of the biliary tree or pancreatic duct. Possible sma ll periampullary duodenal diverticulum. Possible left adrenal thickening versus small nodularity. Rig ht upper pole renal cyst. No hydronephrosis. No splenomegaly. Vessels and lymph nodes: The main portal vein is patent. No abdominal aortic aneurysm. No pathologic adenopathy by size criteria. Bowel and peritoneum: No evidence of small bowel obstruction. No pathologic ascites. No drainable abs cess. Nonspecific trace mid and distal colonic wall thickening. Body wall: Unremarkable Pelvis: Reproductive organs appear physiologic, but are not well evaluated on CT. Bladder is unremark able Bones: No acute or suspicious osseous finding. IMPRESSION: No small bowel obstruction, abscess, or other significant intra-abdominal pathology. Minimal question able wall thickening of the mid and distal colon could represent infectious or inflammatory colitis. Other findings as above. Reviewed by: Brody Ireland MD on 06/11/2022 3:04 PM PDT Approved by: Brody Ireland MD on 06/11/2022 3:04 PM PDT Station ID: [id number]
[2022-06-11] MEDS ORDERED: DOCUSATE SODIUM 100 MG CAPSULE PO STA (15:29)
[2022-06-11] MEDS ORDERED: AMOX/CLAV 875 MG/125 MG TABLET PO STA (15:29)
--- NOTE | 2022-06-11 15:29 | ED Physician Documentation ---
PD HPI ABD PAIN - Stated complaint Stated Complaint: STOMACH PX, BLOOD STOOL - Chief complaint Chief Complaint: Abd Pain - History obtained from History obtained from: Patient - History of Present Illness Timing - onset: Yesterday Timing - duration: Days (1-2) Timing - details: Gradual onset, Still present, Waxing and waning Quality: Cramping, Aching, Pain Location: Suprapubic, LLQ Radiation: No: Lower back, Left flank Improved by: BM. No: Eating Worsened by: No: Eating, Moving Associated symptoms: Hematochezia (noted red blood when wiping after BM. Looked in toilet and stool did not look bloody.). No: Fever, Nausea, Vomiting, Hematemesis Similar symptoms before: Diagnosis (has had some blood in stool from polyps in the past, with colonoscopy and polyp removal. Repeat scope 1 1/2 years ago with one benign polyp. 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 : Kidney stones, None HEENT: None Psych: None Musculoskeletal: None Derm: None - Past Surgical History Past Surgical History: Yes General: Colonoscopy /GENERAL DUTY NURSE: section, Other HEENT: Tonsil/Adenoidectomy - Present Medications Home Medications: Ambulatory Orders Medication Instructions Recorded Confirmed Albuterol Sulf [Ventolin Hfa 1 - 2 puffs INH Q4HR PRN 05/10/20 06/11/22 Inhaler] Amox/Clav 875/125 [Augmentin] 1 each PO Q12H #10 tablet 06/11/22 Docusate Sodium 100Mg Capsule 100 mg PO DAILY #15 cap 06/11/22 [Colace 100Mg Capsule] HYDROcod/ACETAM 5/325 [Eagle 5/325] 1 ea PO Q6H PRN #10 tablet 06/11/22 Ondansetron Odt [Zofran] 4 mg TL Q6H PRN #15 tablet 06/11/22 - Allergies Allergies/Adverse Reactions: Allergies Allergy/AdvReac Type Severity Reaction Status Date / Time Latex, Natural Rubber Allergy Hives Verified 06/11/22 11:46 - Social History Does the pt smoke?: No Smoking Status: Never smoker Does the pt drink ETOH?: Yes Does the pt have substance abuse?: No - Immunizations Immunizations are current?: Yes - POLST Patient has POLST: No PD ED PE NORMAL - Vitals Vital signs reviewed: Yes - General General: Alert and oriented X 3, No acute distress, Well developed/nourished - Neck Neck: Supple, no meningeal sign, No adenopathy - Cardiac Cardiac: RRR, No murmur - Respiratory Respiratory: Clear bilaterally - Abdomen Abdomen: Normal bowel sounds, Soft, Non distended, No organomegaly, Other (tender in mid abd infraumbilical and some LLQ without guarding nor percussion tenderness. ) - Female Female : Deferred - Rectal Rectal: Deferred - Back Back: No CVA TTP Results - Vitals Vitals: Vital Signs - 24 hr 06/11/22 06/11/22 06/11/22 11:43 13:45 15:34 Temperature 36.0 C L Heart Rate 66 87 77 Respiratory 16 18 18 Rate Blood Pressure 125/88 H 116/77 102/69 O2 Saturation 100 99 100 Oxygen O2 Source Room air - Labs Labs: Laboratory Tests 06/11/22 06/11/22 06/11/22 11:52 11:57 11:57 WBC 5.6 RBC 4.40 Hgb 13.4 Hct 39.9 MCV 90.7 MCH 30.5 MCHC 33.6 RDW 12.9 Plt Count 246 MPV 10.0 Neut # (Auto) 3.4 Lymph # (Auto) 1.7 Menard # (Auto) 0.3 Eos # (Auto) 0.1 Baso # (Auto) 0.0 Absolute Nucleated RBC 0.00 Nucleated RBC % 0.0 Sodium 140 Potassium 3.8 Chloride 105 Carbon Dioxide 26 Anion Gap 9.0 BUN 11 Creatinine 0.6 Estimated GFR (MDRD) 114 Glucose 96 Calcium 9.4 Total Bilirubin 1.5 H AST 21 ALT 20 Alkaline Phosphatase 56 Total Protein 7.8 Albumin 4.9 Globulin 2.9 Albumin/Globulin Ratio 1.7 Lipase 99 H Urine Color LIGHT YELLOW Urine Clarity CLEAR Urine pH 6.5 Ur Specific Sheldon <=1.005 Urine Protein NEGATIVE Urine Glucose (UA) NEGATIVE Urine Ketones NEGATIVE Urine Occult Blood TRACE-INTA Urine Nitrite NEGATIVE Urine Bilirubin NEGATIVE Urine Urobilinogen 0.2 (NORMAL) Ur Leukocyte Esterase NEGATIVE Ur Microscopic Review NOT INDICATED Urine Culture Comments NOT INDICATED Urine HCG, Qual NEGATIVE - Rads (name of study) abd/pelvic CT Relevant Findings:: Prelim report reviewed (bowel wall thickening minimally in lower colon (descending/sigmoid).), See rad report PD Medical Decision Making - ED course Complexity details: re-evaluated patient (no URI symptoms. Has local colitis on CT and is in area of pain/tender, so likely true. Presume bacterial. This could be cause of some blood in stool (sigmoid colitis0 rather than hemorrhoid. I did not feel rectal exam would be needed as both treatable. prior polyps with scope 1 1/2 yrs ago normal. ), considered differential (has some lower abd pains for 1 day. Had some red blood with wiping, firm stools but not strained. more likely hemorrhoid or such, but should not cause the abd pain. 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 This showed some likely colitis, and correlates with area of pain. ), d/w patient Departure - Departure Disposition: 01 Home, Self Care Clinical Impression: Lower abdominal pain, Colitis, Hematochezia Condition: Stable Record reviewed to determine appropriate education?: Yes Instructions: ED Hematochezia Stable Follow-Up: DAYANARA PHAM DO [Primary Care Provider] - Prescriptions: Amox/Clav 875/125 [Augmentin] 1 each PO Q12H #10 tablet Docusate Sodium 100Mg Capsule [Colace 100Mg Capsule] 100 mg PO DAILY #15 cap HYDROcod/ACETAM 5/325 [Eagle 5/325] 1 ea PO Q6H PRN #10 tablet PRN Reason: Pain Ondansetron Odt [Zofran] 4 mg TL Q6H PRN #15 tablet PRN Reason: Nausea / Vomiting Comments: Your CT scan shows an area of mild thickening of the colon wall (colitis) in the lower colon. This presumably is given your cramps and may be accounting for some of the blood with the stool. Alternatively the blood like wiping may be from hemorrhoids instead. The cramping however avoid becoming likely from the colitis. This sometimes can be just inflammatory rather than infectious. Would treated as infectious potentially though. Stay well-hydrated and small frequent fluids. Food as tolerated. Use an anti- inflammatory such as ibuprofen or naproxen 2 to 3 tablets twice daily with food to help with inflammation. Use ondansetron if needed for nausea. Tylenol if needed for pains. Add hydrocodone/acetaminophen if needed for worse pain. I would anticipate this just short-term. Augmentin twice daily for 5 days for presumed infectious colitis. Stool softener daily for the next several days to week as well so there is less pressure and irritation on the colon. I sent your prescriptions to [facility] pharmacy. I would anticipate improvement over the next 2 to 3 days and resolved over 3 to 5 days. Recheck if not better in that timeframe and return if worse. I am prescribing a short course of narcotic pain medication for you. These are potentially dangerous and addictive medications that should be used carefully. These medications may constipate you. Take an [id number] stool softener such as docusate twice daily with plenty of water while taking these medications. If you go 24 hours without a bowel movement, take [id number] MiraLAX, per package instructions. Do not drink or drive while taking these medications. If you received narcotic or sedating medications while in the emergency department do not drive for 24 hours. Store this medication in a safe, secure place and out of reach of children. It is a violation of federal law to give or sell this medication to another person or to use in a manner other than prescribed. The ED will not refill narcotic prescriptions, including prescriptions lost or stolen. You can dispose of unwanted medications at the [facility]'s office or at several pharmacies such as [facility]. Discharge Date/Time: 06/11/22 15:55
[2022-06-11 15:37] VITALS: BP 102/69
[2022-06-11] MEDS ORDERED: iohexoL-300 100 ML VIAL IVP ONE (16:44)
== END 2022-06-11 15:55 | disposition home or self-care (01) ==
LOC: ED 11:39
DX: K52.9 Noninfective gastroenteritis and colitis, unspecified (principal)
CPT/HCPCS: 36415; 74177; 80053; 81003; 81025; 83690; 85025; 96374; 96375; 99283; 99284; A9270; Q9967; 81001; 87086

== ENCOUNTER 2022-08-07 12:16 | Outpatient (CLI) | payer OTHER | END 2022-08-07 12:17 | disposition home or self-care (01) | LOC: DI 12:16 | PROVIDERS: ATTEND Student in an Organized Health Care Education/Training Program | DX: R55 Syncope and collapse (principal); I34.0 Nonrheumatic mitral (valve) insufficiency | CPT/HCPCS: 93306 ==

== ENCOUNTER 2022-08-25 11:01 | Emergency (ER) | payer OTHER ==
[2022-08-25 11:11] VITALS: BP 120/84
[2022-08-25 11:32] LABS: GLUCOSE, URINE (UA) NEGATIVE (NEGATIVE); KETONES,URINE (UA) NEGATIVE (NEGATIVE); LEUKOCYTE ESTERASE, URINE TRACE (NEGATIVE); NITRITE,URINE NEGATIVE (NEGATIVE); OCCULT BLOOD,URINE NEGATIVE (NEGATIVE); PH,URINE 6.5 PH (5.0-7.5); PROTEIN,URINE 30 mg/dL (NEGATIVE); UROBILINOGEN,URINE 0.2 (NORMAL) E.U./dL (NORMAL)
[2022-08-25 11:35] LABS: BILIRUBIN,URINE NEGATIVE (NEGATIVE); CLARITY,URINE SL. CLOUDY (CLEAR); HCG UR QUAL NEGATIVE; ICTOTEST,URINE NEGATIVE
[2022-08-25 11:37] LABS: RAPID STREP SCREEN Negative (Negative)
[2022-08-25 11:38] LABS: BACTERIA,URINE Few /HPF (None Seen); SQUAMOUS EPITHELIAL CELL,UR MANY Squamous (<= Few)
[2022-08-25] MEDS ORDERED: predniSONE 20 MG TABLET PO STA (11:47)
[2022-08-25] MEDS ORDERED: KETOROLAC 60 MG/2 ML VIAL IM STA (11:47)
[2022-08-25] MEDS ORDERED: HYDROcodone/ACETAM 7.5 MG/325 MG 15 ML UDC PO STA (11:48)
--- NOTE | 2022-08-25 11:56 | ED Physician Documentation ---
History of Present Illness - Stated complaint Stated Complaint: SORE THROAT - Chief complaint Chief Complaint: General - History obtained from History obtained from: Patient - Additonal information Additional information: The patient comes to the emergency department chief complaint of sore throat, low back pain, and fevers over the last couple of days. She states that she has not had a rhinorrhea, shortness of breath, cough, or GI symptoms. She states her throat hurts so bad that it is hard for her to even want to swallow fluids. She states that one of her children was sick with URI type symptoms about a week ago. She is otherwise healthy. No other complaints at this time. PD PAST MEDICAL HISTORY - Past Medical History Cardiovascular: None, Murmur Respiratory: Asthma Endocrine/Autoimmune: None GI: Chronic constipation, None QA TECH: Endometriosis : Kidney stones, None HEENT: None Psych: None Musculoskeletal: None Derm: None - Past Surgical History Past Surgical History: Yes General: Colonoscopy /QA TECH: section, Other HEENT: Tonsil/Adenoidectomy - Present Medications Home Medications: Ambulatory Orders Medication Instructions Recorded Confirmed Albuterol Sulf [Ventolin Hfa 1 - 2 puffs INH Q4HR PRN 05/10/20 08/25/22 Inhaler] HYDROcodone/ACET 7.5/325 MELISA 5 ml PO Q6HR PRN #60 ml 08/25/22 [Lortab 7.5/325 Melisa] predniSONE [Deltasone] 60 mg PO DAILY 5 Days #15 tablet 08/25/22 - Allergies Allergies/Adverse Reactions: Allergies Allergy/AdvReac Type Severity Reaction Status Date / Time Latex, Natural Rubber Allergy Hives Verified 08/25/22 11:08 - Social History Does the pt smoke?: No Smoking Status: Never smoker Does the pt drink ETOH?: Yes Does the pt have substance abuse?: No - Immunizations Immunizations are current?: Yes - POLST Patient has POLST: No PD ED PE NORMAL - Vitals Vital signs reviewed: Yes - General General: Alert and oriented X 3, No acute distress, Well developed/nourished - HEENT HEENT: Atraumatic, PERRL, EOMI, Moist mucous membranes - Neck Neck: Supple, no meningeal sign, No adenopathy - Cardiac Cardiac: RRR, No murmur - Respiratory Respiratory: No respiratory distress, Clear bilaterally - Abdomen Abdomen: Soft, Non tender, Non distended - Derm Derm: Warm and dry - Extremities Extremities: No deformity - Neuro Neuro: Alert and oriented X 3 - Psych Psych: Normal mood, Normal affect Results - Vitals Vitals: Vital Signs - 24 hr 08/25/22 11:05 Temperature 37.2 C Heart Rate 95 Respiratory 16 Rate Blood Pressure 120/84 H O2 Saturation 100 Oxygen O2 Source Room air - Labs Labs: Laboratory Tests 08/25/22 08/25/22 08/25/22 11:26 11:26 12:03 Urine Color DARK YELLOW Urine Clarity SL. CLOUDY Urine pH 6.5 Ur Specific Reliance 1.025 Urine Protein 30 H Urine Glucose (UA) NEGATIVE Urine Ketones NEGATIVE Urine Occult Blood NEGATIVE Urine Nitrite NEGATIVE Urine Bilirubin NEGATIVE Urine Urobilinogen 0.2 (NORMAL) Ur Leukocyte Esterase TRACE H Urine RBC 6-10 H Urine WBC 6-10 H Ur Squamous Epith Cells MANY Squamous H Urine Bacteria Few Ur Microscopic Review INDICATED Urine Culture Comments NOT INDICATED Urine HCG, Qual NEGATIVE Nasal Adenovirus (PCR) NOT DETECTED Nasal B. parapertussis DNA (PCR) NOT DETECTED Nasal Coronavir 229E PCR NOT DETECTED Nasal Coronavir HKU1 PCR NOT DETECTED Nasal Coronavir NL63 PCR NOT DETECTED Nasal Coronavir OC43 PCR NOT DETECTED Nasal Enterovir/Rhinovir PCR NOT DETECTED Nasal Influenza B PCR NOT DETECTED Nasal Influenza A PCR NOT DETECTED Nasal Parainfluen 1 PCR NOT DETECTED Nasal Parainfluen 2 PCR NOT DETECTED Nasal Parainfluen 3 PCR NOT DETECTED Nasal Parainfluen 4 PCR NOT DETECTED Nasal RSV (PCR) NOT DETECTED Nasal B.pertussis DNA PCR NOT DETECTED Nasal C.pneumoniae (PCR) NOT DETECTED Devin Human Metapneumo PCR NOT DETECTED Nasal M.pneumoniae (PCR) NOT DETECTED Nasal SARS-CoV-2 (PCR) NOT DETECTED Group A Strep Rapid Negative PD Medical Decision Making - ED course Complexity details: reviewed results, re-evaluated patient, considered differential, d/w patient ED course: The patient was treated symptomatically with prednisone, Toradol, and Tylenol 3, and worked up with rapid strep, urinalysis, and respiratory PCR panel. I did offer her IV fluids, but the patient declined, stating that she is a difficult stick for IV and preferred to just see if her throat was feeling better enough so she could drink on her own. The patient's work-up was negative. Her urinalysis was mildly contaminated. Her rapid strep and respiratory PCR panel were entirely negative. I discussed with the patient that she most likely has a viral illness and we have discussed symptomatic management at home for this. I have given her a prescription for prednisone and some Lortab elixir for her sore throat. We have discussed the usual indications for return. Departure - Departure Disposition: Home, Self Care Clinical Impression: Viral syndrome Condition: Stable Instructions: ED Pharyngitis Viral, ED Viral Syndrome Prescriptions: HYDROcodone/ACET 7.5/325 MELISA [Lortab 7.5/325 Melisa] 5 ml PO Q6HR PRN #60 ml PRN Reason: Pain 5-7 predniSONE [Deltasone] 60 mg PO DAILY 5 Days #15 tablet Comments: Your urinalysis and strep test are both negative. Your viral panel is pending at this time. Most likely, the cause of your symptoms is one of the many viruses that are going around and causing fevers and sore throat starting now. We will let you know if there are any significant positives on your viral panel. For now, it is important for you to try to drink fluids is much as possible. You may take ibuprofen and Tylenol at home as needed. Prescriptions for a steroid and a pain medication have been electronically transmitted to the [facility] pharmacy in [place], your pharmacy of choice on record. If you take the liquid pain medication, be sure you do not take more than 325 mg of Tylenol within 4 hours of the pain medicine, as the liquid pain medicine does have some Tylenol with it. Please follow-up with your primary doctor as needed. Discharge Date/Time: 08/25/22 12:36
[2022-08-25 12:57] LABS: B. PARAPERTUSSIS- RESP PCR PAN NOT DETECTED; B. PERTUSSIS- RESP PCR PANEL NOT DETECTED; C. PNEUMONIAE- RESP PCR PANEL NOT DETECTED; CORONAVIRUS 229E-RESP PCR NOT DETECTED; CORONAVIRUS HKU1-RESP PCR NOT DETECTED; CORONAVIRUS NL63-RESP PCR NOT DETECTED; CORONAVIRUS OC43-RESP PCR NOT DETECTED; HUMAN METAPNEUMOVIRUS NOT DETECTED; INFLUENZA A- RESP PCR PANEL NOT DETECTED; INFLUENZA B - RESP PCR PANEL NOT DETECTED; M. PNEUMONIAE- RESP PCR PANEL NOT DETECTED; PARAINFLUENZA VIRUS 1 NOT DETECTED; PARAINFLUENZA VIRUS 2 NOT DETECTED; PARAINFLUENZA VIRUS 3 NOT DETECTED; PARAINFLUENZA VIRUS 4 NOT DETECTED; RHINOVIRUS/ENTEROVIRUS NOT DETECTED; RSV- RESP PCR PANEL NOT DETECTED; SARS-CoV-2 -RESP PCR PANEL NOT DETECTED
== END 2022-08-25 12:36 | disposition home or self-care (01) ==
LOC: ED 11:01
DX: B34.9 Viral infection, unspecified (principal); Z20.822 Contact with and (suspected) exposure to COVID-19
CPT/HCPCS: 81001; 81025; 87070; 87430; 87633; 96372; 99283; 99284; A9270; J7512; 81003; 87086

== ENCOUNTER 2022-11-19 16:45 | Outpatient (CLI) | payer OTHER ==
[2022-11-20 00:56] LABS: BACTERIAL VAGINOSIS DNA NEGATIVE (NEGATIVE); CANDIDA GLABRATA DNA NEGATIVE (NEGATIVE); CANDIDA GROUP DNA NEGATIVE (NEGATIVE); CANDIDA KRUSEI DNA NEGATIVE (NEGATIVE); TRICHOMONAS VAGINALIS DNA NEGATIVE (NEGATIVE)
== END 2022-11-19 17:00 | disposition home or self-care (01) ==
LOC: LAB.N 16:45
PROVIDERS: ATTEND Registered Nurse
DX: N93.9 Abnormal uterine and vaginal bleeding, unspecified (principal)
CPT/HCPCS: 81514

== ENCOUNTER 2023-05-09 13:53 | Emergency (ER) | payer OTHER ==
--- NOTE | 2023-05-09 14:58 | ED Physician Documentation ---
PD HPI FEMALE - Stated complaint Stated Complaint: SPOTTING/CRAMPING - Chief complaint Chief Complaint: Abd Pain - History obtained from History obtained from: Patient, Other ([facility] records) - Additional information Additional information: Patient is a 38-year-old female G7, P2 with a history of 4 miscarriages presenting for repeat hCG level. She reports that 2 days ago she started having some dark brown spotting and cramping and so went to the [facility] emergency department. There she was found to have a blood type of B+. Her hCG level was 24. An ultrasound was obtained which was not able to identify signs of her . She was instructed to have close follow-up in 48 to 72 hours for recheck of her hCG level. She reports minimal cramping that seems improved and she no longer has any spotting. No clots. No dizziness or lightheadedness. She is taking prenatals. She is awaiting referral from the [employer] [facility] for a local [facility]. 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 : Kidney stones, None HEENT: None Psych: None Musculoskeletal: None Derm: None - Past Surgical History Past Surgical History: Yes General: Colonoscopy /ASSISTANT PROFESSOR OF SOCIOLOGY: section, Other HEENT: Tonsil/Adenoidectomy - Present Medications Home Medications: Ambulatory Orders Medication Instructions Recorded Confirmed Albuterol Sulf [Ventolin Hfa 1 - 2 puffs INH Q4HR PRN 05/10/20 05/09/23 Inhaler] - Allergies Allergies/Adverse Reactions: Allergies Allergy/AdvReac Type Severity Reaction Status Date / Time Latex, Natural Rubber Allergy Hives Verified 05/09/23 14:10 - Social History Does the pt smoke?: No Smoking Status: Never smoker Does the pt drink ETOH?: Yes Does the pt have substance abuse?: No - Immunizations Immunizations are current?: Yes - POLST Patient has POLST: No PD ED PE NORMAL - General General: Alert and oriented X 3, No acute distress, Well developed/nourished - HEENT HEENT: Atraumatic - Neck Neck: Supple, no meningeal sign - Cardiac Cardiac: RRR, Strong equal pulses - Respiratory Respiratory: No respiratory distress, Clear bilaterally - Abdomen Abdomen: Normal bowel sounds, Soft, Non tender, Non distended - Derm Derm: Warm and dry - Neuro Neuro: Normal speech Results - Vitals Vitals: Vital Signs - 24 hr 05/09/23 05/09/23 14:05 16:01 Temperature 37.2 C 37 C Heart Rate 92 67 Respiratory 16 18 Rate Blood Pressure 130/77 124/84 H O2 Saturation 100 98 Oxygen O2 Source Room air - Labs Labs: Laboratory Tests 05/09/23 14:45 Beta HCG, Quant 56.7 PD Medical Decision Making - ED course Complexity details: reviewed results, d/w patient ED course: Patient is a 38-year-old female presenting for recheck of her hCG. She was seen at [facility] 2 days ago after having had a home test that was positive with a week and developing some light bleeding and cramping. The bleeding and cramping have stopped. Her abdominal exam is benign. Vital signs are stable. She has no symptoms to suggest ruptured ectopic at this time. She was unable to be seen by her PCP at the [facility]. Repeat hCG was obtained And has appropriately increased over the past 48 hours. Patient again is symptom- free.She was again counseled on need for close follow-up with [facility] as well as advised on strict return precautions. Departure - Departure Disposition: 01 Home, Self Care Clinical Impression: of unknown anatomic location Condition: Stable Instructions: ED Abdominal Pain Rule Out Ectopic Follow-Up: [facility] [Provider Group] Comments: Your HCG level is 56.7 which is increased from 24 (at [facility]). You should have close follow-up with an [facility] or your primary care provider. It may be helpful to have another ultrasound in another week to see if we are able to determine the location of the as we cannot tell where the is right now (inside of the uterus which is normal or an ectopic where it located outside of the uterus). However if you develop any heavier bleeding or any worsening pain then you should return to the emergency department immediately. Forms: PCP List Discharge Date/Time: 05/09/23 16:01
[2023-05-09 16:02] VITALS: BP 124/84; O2SAT 98
== END 2023-05-09 16:01 | disposition home or self-care (01) ==
LOC: ED 13:53
DX: O26.90 Pregnancy related conditions, unspecified, unspecified trimester (principal); R10.9 Unspecified abdominal pain; Z91.040 Latex allergy status
CPT/HCPCS: 36415; 84702; 99283

== ENCOUNTER 2023-05-16 08:16 | Emergency (ER) | payer OTHER ==
[2023-05-16 08:59] LABS: BILIRUBIN,URINE NEGATIVE (NEGATIVE); GLUCOSE, URINE (UA) NEGATIVE (NEGATIVE); KETONES,URINE (UA) NEGATIVE (NEGATIVE); LEUKOCYTE ESTERASE, URINE NEGATIVE (NEGATIVE); NITRITE,URINE NEGATIVE (NEGATIVE); OCCULT BLOOD,URINE SMALL (NEGATIVE); PH,URINE 6.5 PH (5.0-7.5); PROTEIN,URINE NEGATIVE (NEGATIVE); UROBILINOGEN,URINE 0.2 (NORMAL) E.U./dL (NORMAL)
[2023-05-16 09:03] LABS: CLARITY,URINE CLEAR (CLEAR); HCG UR QUAL NEGATIVE
[2023-05-16 09:19] LABS: RBC,URINE 0-5 /HPF (0-5); SQUAMOUS EPITHELIAL CELL,UR RARE Squamous (<= Few); WBC,URINE 0-3 /HPF (0-5)
[2023-05-16 09:20] LABS: BACTERIA,URINE Rare /HPF (None Seen)
[2023-05-16 09:23] LABS: BASOPHILS % (AUTO) 0.3 %; EOSINOPHILS % (AUTO) 0.1 %; HCT - HEMATOCRIT 38.2 % (37.0-47.0); HGB - HEMOGLOBIN 12.4 g/dL (12.0-16.0); LYMPHOCYTES # (AUTO) 0.6 10^3/uL (1.5-3.5); LYMPHOCYTES % (AUTO) 4.6 %; MEAN CORPUSCULAR HEMOGLOBIN 29.8 pg (27.0-31.0); MEAN CORPUSCULAR HGB CONC 32.5 g/dL (32.0-36.0); MEAN CORPUSCULAR VOLUME 91.8 fL (81.0-99.0); MEAN PLATELET VOLUME 9.7 fL (7.9-10.8); MONOCYTES # (AUTO) 0.6 10^3/uL (0.0-1.0); MONOCYTES % (AUTO) 4.5 %; NEUTROPHILS # (AUTO) 11.4 10^3/uL (1.5-6.6); NEUTROPHILS % (AUTO) 90.3 %; PLT - PLATELET COUNT 265 10^3/uL (130-450); RED BLOOD COUNT 4.16 10^6/uL (4.20-5.40); RED CELL DISTRIBUTION WIDTH 13.4 % (12.0-15.0); WHITE BLOOD COUNT 12.7 x10^3/uL (4.8-10.8)
--- NOTE | 2023-05-16 09:32 | ED Physician Documentation ---
PD HPI FEMALE - Stated complaint Stated Complaint: FEMALE ,BODY ACHE - Chief complaint Chief Complaint: Abd Pain - History obtained from History obtained from: Patient - History of Present Illness Timing - onset: How many weeks ago (1 1/2) Timing - duration: Days (2 days of increased cramping and had more bleeding with clots 2 days ago, which has tapered but the cramping still moderate. Believes likely miscarriage at that time 2 days ago. Concerned about still pain, ellis right lower pelvic area.), Weeks (started with some lower abd cramping and vag spotting 1 1/2 weeks ago, seen at [facility] with positive test and then quant of 26. Seen then in ER a week ago and had quant 56 with US not showing any findings of prenancy nor tubal abnormal. Seen [facility] again few days later and quant was 32.) Timing - details: Gradual onset, Still present (decreased but still present.) Associated symptoms: Pelvic pain, Vaginal bleeding. 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 : Kidney stones, None HEENT: None Psych: None Musculoskeletal: None Derm: None - Past Surgical History Past Surgical History: Yes General: Colonoscopy /HOME PERFORMANCE LABORER: section, Other HEENT: Tonsil/Adenoidectomy - Present Medications Home Medications: Ambulatory Orders Medication Instructions Recorded Confirmed Albuterol Sulf [Ventolin Hfa 1 - 2 puffs INH Q4HR PRN 05/10/20 05/16/23 Inhaler] HYDROcod/ACETAM 5/325 [[place] 5/325] 1 ea PO Q6H PRN #12 tablet 05/16/23 Naproxen 500 mg PO BID #20 tab 05/16/23 Ondansetron Odt [Zofran] 4 mg TL Q6H PRN #10 tablet 05/16/23 - Allergies Allergies/Adverse Reactions: Allergies Allergy/AdvReac Type Severity Reaction Status Date / Time Latex, Natural Rubber Allergy Hives Verified 05/16/23 08:43 - Social History Does the pt smoke?: No Smoking Status: Never smoker Does the pt drink ETOH?: Yes Does the pt have substance abuse?: No - Immunizations Immunizations are current?: Yes - POLST Patient has POLST: No PD ED PE NORMAL - Vitals Vital signs reviewed: Yes - General General: Alert and oriented X 3, No acute distress, Well developed/nourished - Cardiac Cardiac: RRR, No murmur - Respiratory Respiratory: Clear bilaterally - Abdomen Abdomen: Normal bowel sounds, Soft, Non distended, No organomegaly, Other (tenderness rlq and suprapubic area without guarding nor rebound tenderness. ) - Female Female : Deferred - Back Back: No CVA TTP - Derm Derm: Normal color, Warm and dry - Neuro Neuro: Alert and oriented X 3, No motor deficit, Normal speech Results - Vitals Vitals: Vital Signs - 24 hr 05/16/23 05/16/23 05/16/23 08:39 11:00 12:59 Temperature 36.5 C Heart Rate 94 85 79 Respiratory 16 16 18 Rate Blood Pressure 109/73 110/70 104/65 O2 Saturation 100 99 98 05/16/23 13:04 Temperature 36.5 C Heart Rate 79 Respiratory 18 Rate Blood Pressure 104/65 O2 Saturation 99 Oxygen O2 Source Room air - Labs Labs: Laboratory Tests 05/16/23 05/16/23 05/16/23 08:54 09:15 09:15 WBC 12.7 H RBC 4.16 L Hgb 12.4 Hct 38.2 MCV 91.8 MCH 29.8 MCHC 32.5 RDW 13.4 Plt Count 265 MPV 9.7 Neut # (Auto) 11.4 H Lymph # (Auto) 0.6 L Coke # (Auto) 0.6 Eos # (Auto) 0.0 Baso # (Auto) 0.0 Absolute Nucleated RBC 0.00 Nucleated RBC % 0.0 Sodium 139 Potassium 4.4 Chloride 107 Carbon Dioxide 29 Anion Gap 3.0 L BUN 7 Creatinine 0.5 L Estimated GFR (MDRD) 140 Glucose 88 Calcium 9.6 Total Bilirubin 1.2 H AST 16 ALT 11 Alkaline Phosphatase 61 Total Protein 7.1 Albumin 4.4 Globulin 2.7 Albumin/Globulin Ratio 1.6 Lipase 21 Beta HCG, Quant Urine Color LIGHT YELLOW Urine Clarity CLEAR Urine pH 6.5 Ur Specific [place] <=1.005 Urine Protein NEGATIVE Urine Glucose (UA) NEGATIVE Urine Ketones NEGATIVE Urine Occult Blood SMALL H Urine Nitrite NEGATIVE Urine Bilirubin NEGATIVE Urine Urobilinogen 0.2 (NORMAL) Ur Leukocyte Esterase NEGATIVE Urine RBC 0-5 Urine WBC 0-3 Ur Squamous Epith Cells RARE Squamous Urine Bacteria Rare Ur Microscopic Review INDICATED Urine Culture Comments NOT INDICATED Urine HCG, Qual NEGATIVE 05/16/23 09:15 WBC RBC Hgb Hct MCV MCH MCHC RDW Plt Count MPV Neut # (Auto) Lymph # (Auto) Coke # (Auto) Eos # (Auto) Baso # (Auto) Absolute Nucleated RBC Nucleated RBC % Sodium Potassium Chloride Carbon Dioxide Anion Gap BUN Creatinine Estimated GFR (MDRD) Glucose Calcium Total Bilirubin AST ALT Alkaline Phosphatase Total Protein Albumin Globulin Albumin/Globulin Ratio Lipase Beta HCG, Quant 5.2 Urine Color Urine Clarity Urine pH Ur Specific [place] Urine Protein Urine Glucose (UA) Urine Ketones Urine Occult Blood Urine Nitrite Urine Bilirubin Urine Urobilinogen Ur Leukocyte Esterase Urine RBC Urine WBC Ur Squamous Epith Cells Urine Bacteria Ur Microscopic Review Urine Culture Comments Urine HCG, Qual - Rads (name of study) pelvic OB US Relevant Findings:: Other (US tech - no IUP. Ovaries normal withut cysts/masses, free fluid. ) PD Medical Decision Making - ED course Complexity details: reviewed results, considered differential (falling HCG to very low. No IUP and more importantly no adnexal masses nor free fluid. No signs of ectopic. Presume pain is ovarian inflammation. ), d/w patient Departure - Departure Disposition: 01 Home, Self Care Clinical Impression: Miscarriage, Complete miscarriage Abdominal pain Qualifiers: Abdominal location: right lower quadrant Qualified Code(s): R10.31 - Right lower quadrant pain Condition: Stable Record reviewed to determine appropriate education?: Yes Instructions: ED Miscarriage Completed Follow-Up: ALEYDA RICCI NP [Primary Care Provider] - Prescriptions: Naproxen 500 mg PO BID #20 tab HYDROcod/ACETAM 5/325 [[place] 5/325] 1 ea PO Q6H PRN #12 tablet PRN Reason: Pain Ondansetron Odt [Zofran] 4 mg TL Q6H PRN #10 tablet PRN Reason: Nausea / Vomiting Comments: Your quantitative hCG is down to 12. It is decreasing appropriately. Your ultrasound does not show anything intrauterine nor in the ovaries. No signs of other abnormalities, in particular no cysts, normal blood flow to the ovary, no free fluid in the pelvis to suggest bleeding or ruptured cyst etc. No signs of ectopic in that regard either. This point I would presume some ovarian pain from inflammation in the uterine pain from inflammation and some of the bleeding still. I would anticipate the bleeding to taper down over the next few days. Meanwhile use some anti-inflammatory such as naproxen twice daily with food. To that add Tylenol every 4-6 hours if needed. Ondansetron if needed for nausea. Stay well-hydrated. Hydrocodone every 4-6 hours if needed for worse pain. Follow-up with DISPUTE RESOLUTION SPECIALIST on Friday as planned. Return if worsening pain, bleeding, vaginal discharge or any fevers. I sent a prescription to [facility] pharmacy. I am prescribing a short course of narcotic pain medication for you. These are potentially dangerous and addictive medications that should be used carefully. These medications may constipate you. Take an [id number]-[id number] stool softener such as docusate twice daily with plenty of water while taking these medications. If you go 24 hours without a bowel movement, take vklm-czl-[id number] MiraLAX, per package instructions. Do not drink or drive while taking these medications. If you received narcotic or sedating medications while in the emergency department do not drive for 24 hours. Store this medication in a safe, secure place and out of reach of children. It is a violation of federal law to give or sell this medication to another person or to use in a manner other than prescribed. The ED will not refill narcotic prescriptions, including prescriptions lost or stolen. You can dispose of unwanted medications at the [facility]'s office or at several pharmacies such as [facility]. Forms: PCP List Discharge Date/Time: 05/16/23 13:04
[2023-05-16 09:33] LABS: ALBUMIN 4.4 g/dL (3.2-5.5); ALBUMIN/GLOBULIN RATIO 1.6 (1.0-2.2); BILIRUBIN,TOTAL 1.2 mg/dL (0.2-1.0); CALCIUM 9.6 mg/dL (8.5-10.3); CREATININE 0.5 mg/dL (0.6-1.3); POTASSIUM 4.4 mmol/L (3.5-4.5); TOTAL PROTEIN 7.1 g/dL (6.4-8.9)
[2023-05-16] MEDS: IBUPROFEN 600 MG TABLET PO STA (10:29)
[2023-05-16 11:23] VITALS: O2SAT 99
--- NOTE | 2023-05-16 12:16 | Ultrasound Report ---
PROCEDURE: OB 1st Trimester w/TV INDICATIONS: minimally positive HCG 05/08 of 56 but was elevating OUTSIDE/PRIOR DATING DATA: Last menstrual period (LMP): 03/31/2023. LMP-based estimated date of delivery (EDWAR): 01/05/2024. First dating scan (date and location): 05/16/2023. Estimated date of delivery (EDWAR) from first dating scan: Not applicable. TECHNIQUE: Real-time scanning was performed of the fetus and maternal pelvic organs, with image documentation. Endovaginal scanning was also performed to better visualize the fetus and maternal ovaries. COMPARISON: None. FINDINGS: No intrauterine gestational sac or fetus is seen. No cardiac activity is detected. Maternal organs: Ovaries appear within normal limits. Dominance follicles are seen in bilateral ovar ies measures up to 1.7 x 2 x 1.4 cm on the right side and 1.1 x 1.6 x 1.4 cm in size on the left side . IMPRESSION: 1. No evidence of intrauterine gestation. No ectopic gestational sac is seen. Please correlate with s erial beta-hCG level and follow-up ultrasound for evaluation of viability. 2. Bilateral ovarian dominant follicles as above. No adnexal mass. Reviewed by: Thierno Lawson MD on 05/16/2023 12:14 PM PDT Approved by: Thierno Lawson MD on 05/16/2023 12:14 PM PDT Station ID: [id number]
[2023-05-16 13:11] VITALS: BP 104/65
== END 2023-05-16 13:04 | disposition home or self-care (01) ==
LOC: ED 08:16
DX: O03.9 Complete or unspecified spontaneous abortion without complication (principal)
CPT/HCPCS: 36415; 76801; 76817; 80053; 81001; 81025; 83690; 84702; 85025; 99284; A9270; 81003; 87086

== ENCOUNTER 2023-10-19 10:17 | Emergency (ER) | payer OTHER ==
[2023-10-19 10:24] VITALS: BP 129/79; O2SAT 99
--- NOTE | 2023-10-19 10:58 | ED Physician Documentation ---
History of Present Illness - Stated complaint Stated Complaint: SORE ON UPPER LT LEG - Chief complaint Chief Complaint: Wound - History obtained from History obtained from: Patient - History of Present Illness Timing: How many weeks ago (2) Pain level max: 0 Pain level now: 0 - Additonal information Additional information: Patient is a 38 female who presents to the emergency department stating that she was bit by mosquitoes about 2 weeks ago. Had an allergic reaction, localized to the left inner thigh. She states that she was placed on a steroid cream. She states that it has become more red, swollen and drained yellow fluid today. History of MRSA in the past. No fevers. No chills. No neck or back pain. No abdominal pain. 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 : Kidney stones, None HEENT: None Psych: None Musculoskeletal: None Derm: None - Past Surgical History Past Surgical History: Yes General: Colonoscopy /MASONRY CONTRACTOR ADMINISTRATOR: section, Other HEENT: Tonsil/Adenoidectomy - Present Medications Home Medications: Ambulatory Orders Medication Instructions Recorded Confirmed Albuterol Sulf [Ventolin Hfa 1 - 2 puffs INH Q4HR PRN 05/10/20 05/16/23 Inhaler] HYDROcod/ACETAM 5/325 [[place] 5/325] 1 ea PO Q6H PRN #12 tablet 05/16/23 Naproxen 500 mg PO BID #20 tab 05/16/23 Ondansetron Odt [Zofran] 4 mg TL Q6H PRN #10 tablet 05/16/23 Fluconazole 150 mg PO ONCE #1 tablet 10/19/23 Sulfamethox/Trimeth 800/160 1 each PO BID #14 tablet 10/19/23 [Bactrim Ds 800/160] cephALEXin [Keflex] 500 mg PO Q6H #28 cap 10/19/23 predniSONE [Deltasone] 40 mg PO DAILY #10 tablet 10/19/23 - Allergies Allergies/Adverse Reactions: Allergies Allergy/AdvReac Type Severity Reaction Status Date / Time Latex, Natural Rubber Allergy Hives Verified 10/19/23 10:20 - Social History Does the pt smoke?: No Smoking Status: Never smoker Does the pt drink ETOH?: Yes Does the pt have substance abuse?: No - Immunizations Immunizations are current?: Yes - POLST Patient has POLST: No PD ED PE NORMAL - Vitals Vital signs reviewed: Yes - General General: Alert and oriented X 3, No acute distress - HEENT HEENT: Moist mucous membranes - Neck Neck: Supple, no meningeal sign - Cardiac Cardiac: RRR - Respiratory Respiratory: No respiratory distress, Clear bilaterally - Derm Derm: Warm and dry - Extremities Extremities: Other (There is a 2 x 2 cm erythematous area with mild induration to the left inner thigh. No pustules or vesicles.) - Neuro Neuro: Alert and oriented X 3 - Psych Psych: Normal mood, Normal affect Results - Vitals Vitals: Vital Signs - 24 hr 10/19/23 10:20 Temperature 36.8 C Heart Rate 83 Respiratory 16 Rate Blood Pressure 129/79 O2 Saturation 99 Oxygen O2 Source Room air PD Medical Decision Making - ED course Complexity details: considered differential, d/w patient ED course: 38-year-old female with cellulitis to the left proximal medial thigh. Sounds like there was an abscess that spontaneously drained at home. Will place her on Bactrim and Keflex. This did start as an allergic reaction so we will add a small amount of steroids. She states that she usually gets a yeast infection from antibiotics, will prescribe Diflucan. Patient is well-appearing, nontoxic. Afebrile. No evidence of necrotizing fasciitis or necrotizing soft tissue infection. Patient counseled regarding signs and symptoms for which I believe and urgent re-evaluation would be necessary. Patient with good understanding of and agreement to plan and is comfortable going home at this time This document was made in part using voice recognition software. While efforts are made to proofread this document, sound alike and grammatical errors may occur. Departure - Departure Disposition: 01 Home, Self Care Clinical Impression: Cellulitis Qualifiers: Site of cellulitis: extremity Site of cellulitis of extremity: lower extremity Laterality: left Qualified Code(s): L03.116 - Cellulitis of left lower limb Allergic reaction Qualifiers: Encounter type: initial encounter Qualified Code(s): T78.40XA - Allergy, unspecified, initial encounter Condition: Good Instructions: ED Infec Skin Cellulitis Follow-Up: ALEYDA RICCI NP [Primary Care Provider] - Prescriptions: Sulfamethox/Trimeth 800/160 [Bactrim Ds 800/160] 1 each PO BID #14 tablet predniSONE [Deltasone] 40 mg PO DAILY #10 tablet Fluconazole 150 mg PO ONCE #1 tablet cephALEXin [Keflex] 500 mg PO Q6H #28 cap Comments: Your prescription was sent to [facility] in [place]. Please take all antibiotics until gone. You can take the fluconazole after you have finished the antibiotic course to treat any yeast infection. This should improve over the next few days. Please return if you worsen. Forms: PCP List
== END 2023-10-19 11:05 | disposition home or self-care (01) ==
LOC: SUPCPDRO 10:17 → ED 10:17
DX: L03.116 Cellulitis of left lower limb (principal); T78.40XA Allergy, unspecified, initial encounter
CPT/HCPCS: 99283

== ENCOUNTER 2023-10-28 11:14 | Emergency (ER) | payer OTHER ==
[2023-10-28 11:32] VITALS: BP 134/82; O2SAT 100
--- NOTE | 2023-10-28 11:37 | ED Physician Documentation ---
History of Present Illness - Stated complaint Stated Complaint: LT INNER THIGH RASH, FEVER - History obtained from History obtained from: Patient - Additonal information Additional information: Patient is a 38-year-old female presenting to the emergency department with left thigh irritation and redness. She was seen here on the for similar symptoms. She suspected she was bitten by a bug at the time was started on Bactrim and Keflex as she has a history of MRSA. Patient notes that initially was improving until about 4 days ago it began to become more red and pruritic again. Patient denies any new soaps or skin detergents. She notes it has a burning sensation with it. She notes she had chills last night and took some Tylenol but denies having any fevers. She has completed the course of Keflex that was prescribed for 7 days but has not completed the course of Bactrim that has been prescribed for 10 days. Patient initially was started on a short course of prednisone as she had small concern for allergic reaction secondary to bug bite on initial presentation on 10/18. Patient denies any other rashes on her body. She denies any other similar symptoms. 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 : Kidney stones, None HEENT: None Psych: None Musculoskeletal: None Derm: None - Past Surgical History Past Surgical History: Yes General: Colonoscopy /TECHNICAL SUPPORT TECHNICIAN: section, Other HEENT: Tonsil/Adenoidectomy - Present Medications Home Medications: Ambulatory Orders Medication Instructions Recorded Confirmed Albuterol Sulf [Ventolin Hfa 1 - 2 puffs INH Q4HR PRN 05/10/20 05/16/23 Inhaler] Sulfamethox/Trimeth 800/160 1 each PO BID #14 tablet 10/19/23 [Bactrim Ds 800/160] Bacitracin Zinc Oint 1 applic TOP BID #1 each 10/28/23 Hydrocortisone 1% Cream 1 applic TOP BID #28 gm 10/28/23 [Hydrocortisone] Sulfamethox/Trimeth 800/160 1 each PO BID 4 Days #8 tablet 10/28/23 [Bactrim Ds 800/160] - Allergies Allergies/Adverse Reactions: Allergies Allergy/AdvReac Type Severity Reaction Status Date / Time Latex, Natural Rubber Allergy Hives Verified 10/28/23 11:27 - Social History Does the pt smoke?: No Smoking Status: Never smoker Does the pt drink ETOH?: Yes Does the pt have substance abuse?: No - Immunizations Immunizations are current?: Yes - POLST Patient has POLST: No PD ED PE NORMAL - Vitals Vital signs reviewed: Yes - General General: Alert and oriented X 3 - HEENT HEENT: Atraumatic - Neck Neck: Supple, no meningeal sign - Cardiac Cardiac: RRR, No murmur, No gallop, No rub - Respiratory Respiratory: No respiratory distress, Clear bilaterally - Abdomen Abdomen: Normal bowel sounds - Derm Derm: Other - Neuro Neuro: Alert and oriented X 3 - Free text exam Free text exam: No palpable inguinal lymph nodes. Results - Vitals Vitals: Vital Signs - 24 hr 10/28/23 11:21 Temperature 36.9 C Heart Rate 89 Respiratory 19 Rate Blood Pressure 134/82 H O2 Saturation 100 Oxygen O2 Source Room air PD Medical Decision Making - ED course Complexity details: reviewed old records, d/w patient ED course: Patient is a 38-year-old female with left erythematous rash to inguinal region. She has had symptoms going on for about 10 days now. She was seen here on the . She completes her antibiotics tomorrow with Bactrim after being diagnosed with cellulitis on the . She notes her symptoms were improving until about 4 to 5 days ago when she began to have worsening swelling to left inner thigh. She finished Keflex after 7 days and will complete Bactrim 10/28.Patient did receive 5 days of prednisone early on for concerns for allergic reaction. Patient denies any new detergents no new bug bites and denies any other areas of rash or swelling.No fevers at home. Vital stable here in the emergency department she is afebrile nontachycardic. Physical exam shows 1 inch erythematous rash to the left inner thigh without tenderness irritation satellite lesions, vesicles, discharge or fluctuance on palpation. No significant warmth to touch. No palpable inguinal lymphadenopathy. Discussed with patient reassuring findings. Discussed with patient extending Bactrim as it does cover for her history of MRSA versus switching oral antibiotics. Patient would like to continue antibiotics of Bactrim for 14 days as she is worried that other antibiotic would upset her stomach. Discussed with patient we will also prescribe steroid cream to help with pruritus as this could also be causing worsening erythema. Additionally will have her apply bacitracin to area as well. A line was drawn around area of erythema with sharpie to allow patient to evaluate if erythema continues. She is instructed to return if this continues to also return if she develops any streaking or fevers at home. Patient understands and is agreeable with this plan. Departure - Departure Disposition: Home, Self Care Clinical Impression: Left leg cellulitis, Skin irritation Condition: Good Instructions: Cellulitis Dc, ED Infec Skin Cellulitis Prescriptions: Bacitracin Zinc Oint 1 applic TOP BID #1 each Sulfamethox/Trimeth 800/160 [Bactrim Ds 800/160] 1 each PO BID 4 Days #8 tablet Hydrocortisone 1% Cream [Hydrocortisone] 1 applic TOP BID #28 gm Comments: You were seen here in the emergency department for your left inner thigh irritation. I have started you on 4-5 more days of antibiotics to cover for possible cellulitis however lower suspicion on physical exam I have also given you a steroid cream to help with your symptoms at home. Please return with any s treaking or redness up your leg, any severe pain, fevers, discharge from the wound.
== END 2023-10-28 12:02 | disposition home or self-care (01) ==
LOC: ED 11:14
DX: L03.116 Cellulitis of left lower limb (principal); Z86.14 Personal history of Methicillin resistant Staphylococcus aureus infection; J45.909 Unspecified asthma, uncomplicated
CPT/HCPCS: 99282; 99283